=== PATIENT | female | born 1945 | race African-American/Black ===

== ENCOUNTER 2016-07-07 15:51 | Inpatient (IN) | payer OTHER ==
[~2016-07-07] VITALS: Ht 167.6 cm; Wt 50.3 kg
[2016-07-07] MEDS ORDERED: BLOO-668 IN (16:30)
[2016-07-07] MEDS ORDERED: DIPH25CA6 PO (16:30)
[2016-07-07] MEDS ORDERED: SENN8.6T6 PO (16:30)
[2016-07-07] MEDS ORDERED: EPOE1VIA4 SQ (16:30)
[2016-07-07] MEDS ORDERED: ASPI-991 PO (16:30)
[2016-07-07] MEDS ORDERED: LEVE250T2 PO (16:30)
[2016-07-07] MEDS ORDERED: CLOP75TA2 PO (16:30)
[2016-07-07] MEDS ORDERED: FOLI0.8T2 PO (16:30)
[2016-07-07] MEDS ORDERED: AMLO10TA2 PO (16:30)
[2016-07-07] MEDS ORDERED: INSU100V3 SQ (16:30)
[2016-07-07] MEDS ORDERED: ATEN50TA PO (16:30)
[2016-07-07] MEDS ORDERED: CALC667C6 PO (16:30)
[2016-07-07] MEDS ORDERED: ACET-868 PO (16:30)
[2016-07-07 16:31] LABS: BASOPHILS % (AUTO) 0.5 % (0.0-2.0); EOSINOPHILS # (AUTO) 0.1 /CMM (0.0-0.7); EOSINOPHILS % (AUTO) 1.4 % (0.0-6.0); HEMATOCRIT 24 % (33-45); LYMPHOCYTES # (AUTO) 1.1 /CMM (0.8-4.8); LYMPHOCYTES % (AUTO) 16.9 % (20.0-44.0); MEAN CORPUSCULAR HEMOGLOBIN 29 PG (26.0-33.0); MEAN CORPUSCULAR HGB CONC 34 g/dl (31.0-36.0); MEAN CORPUSCULAR VOLUME 86 fL (82-100); MONOCYTES # (AUTO) 0.6 /CMM (0.1-1.30); MONOCYTES % (AUTO) 9.1 % (2.0-12.0); NEUTROPHILS # (AUTO) 4.6 /CMM (1.8-8.9); NEUTROPHILS % (AUTO) 72.1 % (43.0-81.0); PLATELET COUNT (AUTO) 238 /CMM (150-450); RDW COEFFICIENT OF VARIATION 16.8 (11.5-15.0); RED BLOOD CELL COUNT(AUTO) 2.73 MIL/uL (4.0-5.2); WHITE BLOOD COUNT (AUTO) 6.4 K/uL (4.3-11.0)
[2016-07-07 16:42] LABS: CALCIUM, SERUM 8.9 mg/dL (8.5-10.1); POTASSIUM 3.5 mmol/L (3.5-5.1)
[2016-07-07 16:45] LABS: INR 0.94 (0.87-1.13); PROTHROMBIN TIME 9.8 SECS (9.5-12.7)
--- NOTE | 2016-07-07 17:29 | NUR ---
PAGED DR LUIS FORD
--- NOTE | 2016-07-07 18:00 | NUR ---
CHIEF SUPPLY CHAIN OFFICERNET LEAD ARCHITECT NOTE PATIENT IS ALERT AND ORIENTED x4. NO PAIN AT THIS TIME. NO SOB OR DISTRESS NOTED. CALL LIGHT WITHIN REACH. SAFETY MEASURES IMPLEMENTED. TRANSFERRED FROM EMERGENCY ROOM VIA GURNEY. PATIENT CAN AMBULATE BUT HAS UNSTEADY GAIT DUE TO WEAKNESS. IV INTACT AND PATENT NO REDNESS OR SWELLING. CURRENTLY AWAITING DIET AND MEDICATION ORDERS FROM DR. FORD. MADE CHARGE NURSE AWARE. WILL CONTINUE TO MONITOR
--- NOTE | 2016-07-07 19:05 | NUR ---
SENIOR COST ACCOUNTANT CLOSING NOTE PATIENT IS ALERT AND ORIENTED x4. NO PAIN AT THIS TIME. NO SOB OR DISTRESS NOTED. PATIENT ABLE TO COMMUNICATE WITH PAPER AND PEN. SAFETY MEASURES IMPLEMENTED. CALL LIGHT WITHIN REACH. WILL ENDORSE TO VOCATIONAL EXAMINER NURSE
--- NOTE | 2016-07-07 19:06 | NUR ---
PATIENT HAS LEFT ARM SHUNT FOR DIALYSIS. NO BLOOD PRESSURE ON LEFT ARM.
--- NOTE | 2016-07-07 19:35 | NUR ---
TELE/RN NOTES RECEIVED PT. SITTING UP IN BED. AWAKE, ALERT AND ORIENTED X3. BREATHING EVEN AND UNLABORED ON 2LPM 02 VIA TRACH MASK. NO SOB, RESPIRATORY DISTRESS OR COMPLAINTS OF PAIN NOTED AT THIS TIME. PT. WITH TRACH PRESENT AND INTACT. PT. WITH DENTAL CERAMIST ASSISTANT PRESENT AND INTACT CURRENT RHYTHM = SINUS RHYTHM HR 67. PT. WITH RIGHT FOREARM 20 GAUGE IV SALINE LOCK PRESENT, PATENT AND INTACT. PER DAYSHIFT NURSE NATE FORD HAS BEEN CALLED AND STILL AWAITING ADMITTING ORDERS FROM DR. FORD. BED IN LOWEST POSITION, CALL LIGHT WITHIN REACH, WILL CONTINUE TO MONITOR.
[2016-07-07 20:00] VITALS: BP 158/66
--- NOTE | 2016-07-07 20:30 | NUR ---
TELE/RN NOTES CALLED TO FOLLOW UP WITH DR. FORD DEEP TISSUE MASSAGE THERAPIST SERVICE. UNABLE TO REACH DR. FORD AT THIS TIME. PER DEEP TISSUE MASSAGE THERAPIST SERVICE DR. FORD WILL BE PAGED AND WILL CALL BACK. WILL CONTINUE TO WAIT FOR ADMITTING ORDERS. WILL CONTINUE TO MONITOR.
--- NOTE | 2016-07-07 21:15 | NUR ---
TELE/RN NOTES NO RESPONSE/CALL BACK FROM DR. FORD. CALLED TO FOLLOW UP WITH DR. FORD BULKING MACHINE OPERATOR SERVICE. STILL UNABLE TO REACH DR. FORD AT THIS TIME. PER BULKING MACHINE OPERATOR SERVICE DR. FORD WILL BE PAGED AGAIN. WILL CONTINUE TO WAIT FOR ADMITTING ORDERS.
--- NOTE | 2016-07-07 21:55 | NUR ---
TELE/RN NOTES NO RESPONSE/CALL BACK FROM DR. FORD AT THIS TIME. CALLED TRAUMA COUNSELLOR SERVICE, UNABLE TO REACH DR. FORD AT THIS TIME. PER TRAUMA COUNSELLOR SERVICE DR. FORD WILL BE PAGED. WILL CONTINUE TO WAIT FOR ADMITTING ORDERS. WILL CONTINUE TO MONITOR PT.
--- NOTE | 2016-07-07 22:35 | NUR ---
TELE/RN NOTES SPOKE TO DR. FORD. NEW ORDERS: STOOL GUAIC X3, PROTONIX 40MG IVPB BID, CBC AND BMP IN THE MORNING, CONTINUE ALL HOME MEDICATIONS, CONTINUE DIET FROM LONG-TERM. WILL CARRY OUT ORDERS. WILL CONTINUE TO MONITOR FOR THE PT.
[2016-07-07] MEDS ORDERED: LEVETIRACETAM (250 MG) 250 MG TABLET PO SCH (23:30)
[2016-07-07] MEDS: BLOOD SUGAR DIAGNOSTIC 1 EACH STRIP IN SCH (23:49)
[2016-07-07] MEDS ORDERED: LEVETIRACETAM (250 MG) 250 MG TABLET PO ONE (23:51)
[2016-07-08] VITALS (14 sets, daily range): BP systolic 126–156; BP diastolic 57–74
[2016-07-08] MEDS ORDERED: PANTOPRAZOLE 40 MG VIAL ONE (00:55)
[2016-07-08] MEDS ORDERED: SECONDARY IV SET 1 EA INFUS.SET MC ONE (00:56)
[2016-07-08] MEDS ORDERED: IV NS 0.9% 100 ML IV ONE (00:56)
--- NOTE | 2016-07-08 00:58 | NUR ---
TELE/RN NOTES VERIFIED WITH ICU NURSE RATE AND DILUTION OF PROTONIX 40MG IVPB. WILL ADMINISTER MEDICATION ORDERED. WILL CONTINUE TO MONITOR.
[2016-07-08] MEDS ORDERED: PANTOPRAZOLE 40 MG in IV NS 0.9% 100 ML IV SCH (01:00)
[2016-07-08] MEDS ORDERED: IV NS 0.9% 250 ML IV ONE (01:01)
[2016-07-08] MEDS ORDERED: IV SET PRIMARY PUMP SET 1 EA INFUS.SET MC ONE (01:01)
[2016-07-08] MEDS: BLOOD SUGAR DIAGNOSTIC 1 EACH STRIP IN SCH ×4 (06:55→17:42)
--- NOTE | 2016-07-08 06:55 | NUR ---
TELE/RN NOTES PT. LYING IN BED RESTING. BREATHING EVEN AND UNLABORED ON 2LPM 02 VIA TRACH MASK. NO SOB, RESPIRATORY DISTRESS OR COMPLAINTS OF PAIN NOTED AT THIS TIME. PT. WITH SHILEY #6 TRACH PRESENT AND INTACT. PT. WITH VETERANS' COORDINATOR PRESENT AND INTACT CURRENT RHYTHM = SINUS RHYTHM HR 70. PT. WITH RIGHT FOREARM 20 GAUGE IV SALINE LOCK PRESENT, PATENT AND INTACT. NO S/S OF HYPO/HYPERGLYCEMIA NOTED THROUGHOUT SHIFT. ALL PT. NEEDS MET. BED IN LOWEST POSITION, CALL LIGHT WITHIN REACH, WILL ENDORSE TO DAYSHIFT NURSE FOR CONTINUITY OF CARE.
--- NOTE | 2016-07-08 07:10 | NUR ---
IT SECURITY ADMINISTRATOR NOTES PATIENT AMBULATES WITH FWW, NO S/SX OF DISTRESS NOTED, DENIES PAIN OR DISCOMFORT AT THIS TIME, INFORMED PATIENT PLAN OF CARE FOR TODAY, SAFETY MEASURES IN PLACED, CALL LIGHT WITHIN REACH, WILL CONTINUE TO MONITOR.
[2016-07-08] MEDS ORDERED: DEXTROSE 50%-WATER 50 ML DISP.SYRIN IV PRN (07:30)
[2016-07-08] MEDS: INSULIN REGULAR, HUMAN 100 UNIT/ML 3 ML VIAL SQ SCH ×3 (07:30→17:30)
--- NOTE | 2016-07-08 08:28 | NUR ---
METAL COATER OPERATOR NOTES PATIENT INFORMED OF DR. FORD'S ORDER FOR BLOOD TRANSFUSION X1 UNIT, PER PATIENT SHE PREFERS HER SON OR DAUGHTER TO GIVE CONSENT, I WAS ABLE TO REACH SON VIA PHONE MERON BHATT AND GAVE CONSENT TO THE BLOOD TRANSFUSION, WITNESSED BY ANOTHER NURSE GABY. PATIENT ALSO REFUSED DIALYSIS TODAY, STATING SHE HAD DIALYSIS YESTERDAY.
[2016-07-08] MEDS ORDERED: ACETAMINOPHEN 325 MG TABLET PO PRN (08:30)
[2016-07-08] MEDS ORDERED: diphenhydrAMINE HCL 25 MG CAPSULE PO PRN (08:30)
[2016-07-08] MEDS ORDERED: BLOOD SUGAR DIAGNOSTIC 1 EACH STRIP IN SCH (08:30)
[2016-07-08] MEDS ORDERED: ATENOLOL 50 MG TABLET PO SCH (09:00)
[2016-07-08] MEDS ORDERED: ASPIRIN EC 81 MG TABLET.DR PO SCH (09:00)
[2016-07-08] MEDS: CLOPIDOGREL BISULFATE 75 MG TABLET PO SCH (09:00)
[2016-07-08] MEDS ORDERED: SENNOSIDES 8.6 MG TABLET PO SCH (09:00)
[2016-07-08] MEDS ORDERED: AMLODIPINE BESYLATE 10 MG TABLET PO SCH (09:00)
[2016-07-08] MEDS ORDERED: PANTOPRAZOLE 40 MG VIAL IV SCH (09:00)
[2016-07-08] MEDS ORDERED: VIT B CMPLX 3/FA/VIT C/BIOTIN 1 TAB TABLET PO SCH (09:00)
[2016-07-08] MEDS: CALCIUM ACETATE 667 MG TABLET PO SCH ×3 (09:49→17:37)
[2016-07-08] MEDS: LEVETIRACETAM (250 MG) 250 MG TABLET PO SCH ×2 (09:51→17:37)
--- NOTE | 2016-07-08 10:14 | NUR ---
OUTPATIENT CODER NOTES WILL HOLD PLAVIX AT THIS TIME, DUE TO LOW HGB/HCT WILL VERIFY WITH MD.
--- NOTE | 2016-07-08 10:54 | NUR ---
MARKETING INTELLIGENCE ANALYST NOTES PER DR. BHAGAT, DO NOT HOLD PLAVIX, OK TO GIVE, OFFERED TO PATIENT, BUT PATIENT REFUSED AT THIS TIME, EXPLAINED RISK AND BENEFITS STILL REFUSED, DR. BHAGAT AWARE.
[2016-07-08] MEDS ORDERED: BLOOD IV SET 1 EA INFUS.SET MC ONE (11:46)
--- NOTE | 2016-07-08 12:52 | NUR ---
APPLICATIONS SUPPORT SPECIALIST NOTES PATIENT IN BED, ALERT AND ORIENTED, BLOOD TRANSFUSION STARTED, VERIFIED BY 2 NURSES, VITALS MONITORED, PATIENT DENIES ANY DISCOMFORT, WILL CONTINUE TO MONITOR.
--- NOTE | 2016-07-08 15:30 | NUR ---
MANAGER ENVIRONMENTAL AFFAIRS NOTES BLOOD TRANSFUSION COMPLETED, NO ADVERSE REACTION NOTED, VITAL SIGNS STABLE, PATIENT IS ALERT AND ORIENTED, NO DISTRESS NOTED, PATIENT WILL BE PREPARED FOR DISCHARGE.
--- NOTE | 2016-07-08 18:45 | NUR ---
SVP RESEARCH AND STRATEGIC ANALYSIS NOTES PATIENT IN STABLE CONDITION RECEIVED DISCHARGE INSTRUCTIONS AND VERBALIZED UNDERSTANDING, PATIENT IS SOMEWHAT FORGETFUL, RE-EDUCATED AND RE-ORIENTED, SKIN INTACT, ON COOL AEROSOL 5LPM WITH SPO2 99-100%, IN STABLE CONDITION, VITAL SIGNS STABLE, NEEDS ATTENDED AND MET, REMOVED PIV SECURED WITH GAUZE, REPORT GIVEN TO PAULETTE AT [facility], AMBULANCE CAME AND RECEIVED REPORT, TRANSFERRED OUT OF FACILITY, IN STABLE CONDITION.
[2016-07-10] MEDS ORDERED: EPOETIN ALFA (2000 UNIT) 2,000 UNIT/ML VIAL SQ SCH (15:00)
== END 2016-07-08 18:57 | DRG 811 ==
LOC: ER 16:02 → TELE 17:44 → MED 07-08 09:20
PROVIDERS: ADMIT Internal Medicine Nephrology; ATTEND Internal Medicine Nephrology
PROC: 30233N1 Transfusion of Nonautologous Red Blood Cells into Peripheral Vein, Percutaneous Approach (ICD-10-PCS; principal; 2016-07-08)
DX: D63.1 Anemia in chronic kidney disease (principal); N18.6 End stage renal disease; I12.0 Hypertensive chronic kidney disease with stage 5 chronic kidney disease or end stage renal disease; J96.10 Chronic respiratory failure, unspecified whether with hypoxia or hypercapnia; E11.22 Type 2 diabetes mellitus with diabetic chronic kidney disease; G40.909 Epilepsy, unspecified, not intractable, without status epilepticus; E03.9 Hypothyroidism, unspecified; Z79.02 Long term (current) use of antithrombotics/antiplatelets
CPT/HCPCS: 36415; 80048-TC; 82962-TC; 85025-TC; 85730-TC; 86850-TC; 86921-TC; 87081-TC; 90935-TC; A4606; C9113; J1815; J7030; J7050; P9016-BL; Z7610